=== PATIENT | female | born 1960 | race Caucasian/White ===

== ENCOUNTER 2019-10-15 08:17 | Day surgery (SDC) | payer OTHER ==
[~2019-10-15] VITALS: Ht 154.9 cm; Wt 81.6 kg
[~2019-10-15 08:17] MED LIST: ASPIRIN81 MG PO; ATORVASTATIN CA40 MG PO; BUT/APAP/CAF PO; CARVEDILOL3.125 MG PO; CYMBALTA30 MG PO; DITROPAN5 MG/TA1 PO; DOCUSATE CAL240 MG PO; FLEXERIL5 MG PO; LISINOP/HCTZ1 TA2 PO; POTASSIUM99 MG PO; PROMETHAZINE12.5 MG PO; PROTONIX20 MG PO; SUCRALFATE1 GM PO
[2019-10-15 11:19] VITALS: BP 98/53
== END 2019-10-15 11:18 | disposition home or self-care (01) | DRG 392 ==
LOC: ENDO 08:17 → ORM 10:05 → ENDO 10:35
PROVIDERS: ATTEND Internal Medicine Gastroenterology
PROC: 0D758ZZ Dilation of Esophagus, Via Natural or Artificial Opening Endoscopic (ICD-10-PCS; principal; 2019-10-15)
PROC: 0DB48ZX Excision of Esophagogastric Junction, Via Natural or Artificial Opening Endoscopic, Diagnostic (ICD-10-PCS; 2019-10-15)
PROC: 0DB78ZX Excision of Stomach, Pylorus, Via Natural or Artificial Opening Endoscopic, Diagnostic (ICD-10-PCS; 2019-10-15)
DX: K21.0 Gastro-esophageal reflux disease with esophagitis (principal); K29.50 Unspecified chronic gastritis without bleeding; K44.9 Diaphragmatic hernia without obstruction or gangrene; Q40.8 Other specified congenital malformations of upper alimentary tract; I10 Essential (primary) hypertension; J45.909 Unspecified asthma, uncomplicated; B18.2 Chronic viral hepatitis C; K76.0 Fatty (change of) liver, not elsewhere classified; Z79.899 Other long term (current) drug therapy; Z20.828 Contact with and (suspected) exposure to other viral communicable diseases